=== PATIENT | female | born 1990 | race American Indian/Alaskan Native ===

== ENCOUNTER 2017-01-10 16:23 | Emergency (ER) | payer SELFPAY ==
[2017-01-10 16:39] VITALS: BP 122/71
[2017-01-10 18:29] LABS: Basophils % (Auto) 0.4 % (0.0-1.8); Eosinophils % (Auto) 1.9 % (0.0-4.3); Hematocrit 27.6 % (30.3-42.9); Hemoglobin 8.3 gm/dl (10.1-14.3); Mean Corpuscular HGB Conc 30 % (30-34); Platelet Count 299 K/mm3 (140-440); Red Cell Distribution Width 19.8 % (13.2-15.2); White Blood Count 9.1 K/mm3 (4.5-11.0)
[2017-01-10 19:22] LABS: Mean Corpuscular Hemoglobin 20 pg (28-32); Mean Corpuscular Volume 66 fl (79-97)
--- NOTE | 2017-01-15 01:11 | ED Elopement Review ---
ED Pt Elopement review - Results review Lab results: Laboratory Tests 01/10/17 01/10/17 01/10/17 17:52 17:52 17:52 WBC 9.1 RBC 4.20 Hgb 8.3 L Hct 27.6 L MCV 66 L MCH 20 L MCHC 30 RDW 19.8 H Plt Count 299 Lymph % (Auto) 24.1 [place] % (Auto) 3.7 Eos % (Auto) 1.9 Baso % (Auto) 0.4 Lymph # 2.2 [place] # 0.3 Eos # 0.2 Baso # 0.0 Seg Neutrophils % 69.9 Seg Neutrophils # 6.3 HCG, Quant 2.01 Blood Type O POSITIVE Antibody Screen Negative - Call Back decision Pt Call Back Decision: No action required
== END 2017-01-10 23:25 | disposition left against medical advice (07) ==
LOC: ED 16:23
DX: N93.9 Abnormal uterine and vaginal bleeding, unspecified (principal); Z53.21 Procedure and treatment not carried out due to patient leaving prior to being seen by health care provider
CPT/HCPCS: 36415; 84702; 85025; 86850; 86900; 86901